=== PATIENT | male | born 1950 | race Caucasian/White ===

== ENCOUNTER 2023-08-29 19:07 | Emergency (ER) | payer MEDICARE, OTHER ==
[~2023-08-29] VITALS: Ht 177.8 cm; Wt 110.0 kg
[2023-08-29] MEDS ORDERED: OMEPRAZOLE20 MG PO (20:26)
[2023-08-29] MEDS ORDERED: METOPROLOL SUC100 MG PO (20:26)
[2023-08-29] MEDS ORDERED: LOVASTATIN20 MG PO (20:26)
[2023-08-29] MEDS ORDERED: LISINOPRIL-HCT1 EAC1 PO (20:26)
[2023-08-29 20:54] LABS: BASOPHILS 0.5 % (0-2); EOSINOPHILS 2.9 % (0-6); HEMATOCRIT 44.3 % (35.0-50.0); HEMOGLOBIN 15.3 g/dL (12.0-18.0); LYMPHOCYTES 21.4 % (24-44); MCH 33.3 (27-36); MCHC 34.6 g/dl (30-36); MONOCYTES 9.8 % (0-12); NEUTROPHILS 65.4 % (39-80); PLATELET COUNT 176 K/uL (140-440); RBC 4.61 M/ul (4.3-5.7); RDW 13.5 (10.5-15.0)
[2023-08-29 21:18] LABS: ALBUMIN 3.7 g/dL (3.4-5.0); ALBUMIN/GLOBULIN RATIO 1.23 (1.1-2.4); BILIRUBIN, TOTAL 0.5 ng/dL (0.2-1.0); BUN/CREATININE RATIO 17.39 (6.0-28.6); CALCIUM 8.6 mg/dL (8.5-10.1); CREATININE, SERUM 0.92 mg/dL (0.70-1.30); MAGNESIUM 2.2 mg/dL (1.8-2.4); PROTEIN, TOTAL 6.7 g/dL (6.4-8.2)
[2023-08-30 00:03] VITALS: BP 135/76
--- NOTE | 2023-08-31 18:49 | EKG ---
[facility] [address] [facility] [place], [place] [address] Signed Normal sinus rhythm Normal ECG Confirmed by Jose A Pineda M.D. ([id number]) on 08/31/2023 6:49:05 PM Electronically Signed By: JOSE A PINEDA 08/31/23 1849 PATIENT NAME: MIGUEL ANGEL BRO Electrocardiogram DATE OF : 54 PHYSICIAN: JOSE A PINEDA REPORT #: [id number] REPORT IS CONFIDENTIAL AND NOT TO BE RELEASED WITHOUT AUTHORIZATION
== END 2023-08-30 00:04 | disposition home or self-care (01) ==
LOC: ED 19:07
PROVIDERS: Internal Medicine
DX: G45.9 Transient cerebral ischemic attack, unspecified (principal); E87.6 Hypokalemia; I10 Essential (primary) hypertension; K21.9 Gastro-esophageal reflux disease without esophagitis; E78.00 Pure hypercholesterolemia, unspecified; Z79.899 Other long term (current) drug therapy
CPT/HCPCS: 36415; 70450; 70496; 70498; 71045; 80053; 83735; 84484; 85025; 93005; 93010; 99284-25; A9270

== ENCOUNTER 2024-05-17 05:35 | Day surgery (SDC) | payer MEDICARE, OTHER ==
[2024-05-04 14:26] VITALS: BP 132/76
[~2024-05-17] VITALS: Ht 177.8 cm; Wt 109.1 kg
[~2024-05-17 05:35] MED LIST: BAYER BACK & B1 EACH PO; CENTRUM SILVER1 EAC9 PO; HYDROCHLOROTH12.5 MG PO; LACTATED RINGER'S 1,000 ML IV SCH; LISINOPRIL-HCT1 EAC1 PO; LOVASTATIN20 MG PO; MELOXICAM15 MG PO; METOPROLOL SUC100 MG PO; OMEPRAZOLE20 MG PO; ZESTRIL40 MG PO
[2024-05-17] MEDS ORDERED: GABAPENTIN 600 MG TAB ONE (05:49)
[2024-05-17 06:06] VITALS: BP 153/81
[2024-05-17 06:32] LABS: BASOPHILS 1.1 % (0-2); EOSINOPHILS 5.9 % (0-6); HEMATOCRIT 44.5 % (35.0-50.0); HEMOGLOBIN 15.6 g/dL (12.0-18.0); LYMPHOCYTES 21.8 % (24-44); MCH 33.8 (27-36); MCHC 35.1 g/dl (30-36); MCV 96.4 fl (81-99); MONOCYTES 10.8 % (0-12); NEUTROPHILS 60.4 % (39-80); PLATELET COUNT 171 K/uL (140-440); RBC 4.62 M/ul (4.3-5.7); RDW 13.4 (10.5-15.0)
[2024-05-17 06:46] LABS: ALBUMIN/GLOBULIN RATIO 1.38 (1.1-2.4); ANION GAP 13.7 (7-21); BILIRUBIN, TOTAL 0.8 ng/dL (0.2-1.0); BUN/CREATININE RATIO 23.23 (6.0-28.6); CALCIUM 9.1 mg/dL (8.5-10.1); CREATININE, SERUM 0.99 mg/dL (0.70-1.30); POTASSIUM 3.7 mmol/L (3.5-5.1); PROTEIN, TOTAL 6.9 g/dL (6.4-8.2)
[2024-05-17] MEDS ORDERED: PANTOPRAZOLE SODIUM 40 MG TABEC PO SCH (07:00)
[2024-05-17] MEDS ORDERED: OXYCODONE HCL 5 MG TAB PO SCH (07:00)
[2024-05-17] MEDS ORDERED: KETOROLAC TROMETHAMINE 30 MG/ML VIAL IV PRN (07:00)
[2024-05-17] MEDS ORDERED: TRANEXAMIC ACID 2,000 MG in SODIUM CHLORIDE 0.9% 100 ML IV SCH (07:00)
[2024-05-17] MEDS ORDERED: OXYCODONE HCL 5 MG TAB PO PRN (07:00)
[2024-05-17] MEDS ORDERED: IBLOOD GLUCOSE TEST STRIP 1 EA TEST VI PRN ×2 (07:00→09:00)
[2024-05-17] MEDS ORDERED: GABAPENTIN 600 MG TAB PO SCH (07:00)
[2024-05-17] MEDS ORDERED: ondansetron HCL 4 MG TAB PO SCH (07:00)
[2024-05-17] MEDS ORDERED: LIDOCAINE HCL 1% 5 ML SDV INJ ONE (07:00)
[2024-05-17] MEDS ORDERED: CEFAZOLIN SODIUM 2 GM/20 ML SYR IV SCH ×2 (07:00→15:00)
[2024-05-17] MEDS ORDERED: INTRA-ARTICULAR ANALGESIC INJECTION XX SCH (07:00)
[2024-05-17] MEDS ORDERED: propofoL 200 MG/20 ML VIAL ONE ×2 (07:39→08:02)
[2024-05-17] MEDS ORDERED: BUPIVACAINE 0.75% IN DEXTROSE 2 ML AMP ONE (07:40)
[2024-05-17] MEDS ORDERED: LIDOCAINE HCL 2% 5 ML SDV ONE (07:40)
[2024-05-17] MEDS ORDERED: LACTATED RINGER'S 1,000 ML IV ONE (08:20)
[2024-05-17] MEDS ORDERED: ACETAMINOPHEN 1,000 MG/100 ML VIAL ONE (08:59)
[2024-05-17] MEDS ORDERED: fentaNYL citrate 50 MCG/ML SDV IV PRN (09:00)
[2024-05-17] MEDS ORDERED: HYDROmorphone HCL 1 MG/ML SYR IV PRN (09:00)
[2024-05-17] MEDS ORDERED: ondansetron HCL 4 MG/2 ML VIAL IV PRN (09:00)
[2024-05-17] MEDS ORDERED: NALOXONE HCL 0.4 MG SYR IV PRN (09:00)
[2024-05-17] MEDS ORDERED: KETOROLAC TROMETHAMINE 30 MG/ML VIAL ONE (09:25)
[2024-05-17] MEDS ORDERED: OXYCODONE HCL5 MG PO (09:41)
[2024-05-17] MEDS ORDERED: XARELTO10 MG PO (09:41)
[2024-05-17] MEDS ORDERED: CELECOXIB200 MG PO (09:41)
[2024-05-17] MEDS ORDERED: ACETAMINOPHEN500 MG PO (09:42)
[2024-05-17] MEDS ORDERED: CEFUROXIME500 MG PO (09:42)
[2024-05-17] MEDS ORDERED: GABAPENTIN300 MG PO (09:42)
[2024-05-17] MEDS ORDERED: SENNA LAX8.6 MG PO (09:42)
--- NOTE | 2024-05-17 09:56 | NUR ---
05/17/24 0956 Anum Alcaraz PATIENT ARRIVES IN PACU AWAKE AND ALERT. HE IS TALKING WITH SUPPLIER ENGINEER AND NURSING STAFF. HE DENIES PAIN. HE IS UNABLE TO MOVE HIS LEGS, BILATERALLY.
[2024-05-17] MEDS ORDERED: TRANEXAMIC ACID 2,000 MG in SODIUM CHLORIDE 0.9% 100 ML IV ONE (09:59)
[2024-05-17 10:25] VITALS: BP 125/65
--- NOTE | 2024-05-17 10:32 | NUR ---
1025-PT BACK TO ROOM FROM PACU ON RA. RECEIVED REPORT FROM CORNELIA PEREIRA. PT IS AWAKE. JERRICA PAIN AND NAUSEA. CRYO CUFF IN PLACE AND RUNNING. PROVIDED PT WITH WATER. DECLINES SNACKS AT THIS TIME. NO OTHER NEEDS AT THIS TIME. CALL LIGHT WITHIN REACH.
--- NOTE | 2024-05-17 11:11 | OR ---
[facility] [address] [place], [place] [address] Signed DATE OF OPERATION: 05/17/2024 SURGEON: Christal Roy MD PREOPERATIVE DIAGNOSIS: Severe degenerative joint disease, left hip. POSTOPERATIVE DIAGNOSIS: Severe degenerative joint disease, left hip. PROCEDURE PERFORMED: Left total hip arthroplasty with Bharath. INSECTICIDE MAKER: Alexa Agudelo PA-C. Alexa was present and critical for all portions of procedure. ANESTHESIA: Spinal. BLOOD LOSS: 175 mL. IMPLANTS: Yong Secur-Fit Advanced size 10 stem, 58 mm cup with two screws and -2.5 head. BRIEF HISTORY: Jordan is a 73-year-old gentleman with progressive worsening of osteoarthritis in his left hip. He had revision hip arthroplasty on the right and his right leg was about 1 inch short. We discussed the fact that that will continue to be the case as we could not shorten this side. He understood and wished to proceed. Risks, benefits, and alternatives were discussed and he elected to proceed. PROCEDURE IN DETAIL: Once consent was obtained, he was taken to the operating room. After adequate anesthesia, he was placed on his right lateral decubitus position. Axillary roll was placed. All downside pressure points were padded. The leg was then prepped and draped in a standard sterile fashion. The computer array for the Bharath system was then placed in the posterior three fingerbreadths of the iliac crest through separate stab incisions. Once this was accomplished, the hip was approached through standard anterior Electronically Signed By: CHRISTAL ROY MD 05/17/24 1111 PATIENT NAME: JORDAN BRO OPERATIVE REPORT DATE OF : 54 REPORT #: [id number] PHYSICIAN: CHRISTAL ROY MD PCP: REY SALAZAR REPORT IS CONFIDENTIAL AND NOT TO BE RELEASED WITHOUT AUTHORIZATION [facility] [address] [place], [place] [address] Signed lateral approach. This was carried through skin subcutaneous tissue and down to the IT band which was divided longitudinally. The vastus lateralis was then divided from the tip of the trochanter distally and subperiosteally elevated around to the level of the lesser trochanter. The gluteus medius and capsule were split as we went. This was then elevated off the anterior femoral neck. There was fairly thickened capsule that was released anteriorly and superiorly. The hip was quite tight and multiple attempts at closed dislocation was undertaken without success. We then marked the leg lengths with the computer and established the position. The femoral neck cut x2 was made and the napkin ring of bone was removed. We attempted to remove the head and he still had difficulty with it, so I went ahead and split the head in half and removed it quite easily. The periacetabular soft tissue was then removed and the pulvinar was removed. The fine anatomic points of the acetabulum were then registered with the computer. Acetabulum was then reamed to the preset depth. Once this was accomplished, there was a large cyst in the superior aspect of the acetabulum. This was curetted and packed with bone graft from the femoral head. This was then reverse reamed into position. The cup was then impacted into the acetabulum until it was well-seated. Then two screws were placed in the posterior superior quadrant. The acetabular liner was then impacted. The cup was quite stable. Attention was then turned to the proximal femur which was opened using the [employer] cutter followed by the Charnley awl. The Charnley awl was then used to find the canal. The lateralizing reamer was used to open up the trochanter and the femur was then broached up to a 10 which was found to be well fitting. A standard offset neck and a -2.5 head was then placed on it and it was reduced. The leg lengths felt good, although was still long from the opposite side. The hip was stable with negative Shuck. The range of motion was 100 degrees of flexion with 30 of internal-external rotation and no impingement. The hip was dislocated and the trials were removed. The final stem was impacted to the same level as the broach. The -2.5 head was impacted onto the trunnion after cleaning the taper. The hip was again reduced taken through range of motion as noted above and found to be stable. The wound was copiously irrigated with one bottle of Surgiphor followed by normal saline. The periarticular soft tissues were injected with 100 mL ropivacaine and Toradol mixture. The capsule was closed using #2 FiberWire. The vastus and IT band layers were closed independently using #2 Stratafix, the subcutaneous tissue with 0 Stratafix and the skin with 3-0 Stratafix. The wound was sealed with LiquiBand and Steri-Strips and dressed with Acticoat-7 dressing. He was awakened, taken to the recovery room in satisfactory condition. All sponge, needle, and instrument counts were correct. Christal Roy MD Electronically Signed By: CHRISTAL ROY MD 05/17/24 1111 PATIENT NAME: JORDAN BRO OPERATIVE REPORT DATE OF : 54 REPORT #: [id number] PHYSICIAN: CHRISTAL ROY MD PCP: REY SALAZAR REPORT IS CONFIDENTIAL AND NOT TO BE RELEASED WITHOUT AUTHORIZATION [facility] [address] [place], [place] [address] [address] Signed /MODL /[id number] Copies: ~ Electronically Signed By: CHRISTAL ROY MD 05/17/24 1111 PATIENT NAME: JORDAN BRO OPERATIVE REPORT DATE OF : 54 REPORT #: [id number] PHYSICIAN: CHRISTAL ROY MD PCP: REY SALAZAR REPORT IS CONFIDENTIAL AND NOT TO BE RELEASED WITHOUT AUTHORIZATION
[2024-05-17 11:26] VITALS: BP 121/47
[2024-05-17 12:23] VITALS: BP 113/55
[2024-05-17 13:30] VITALS: BP 104/50
--- NOTE | 2024-05-17 13:38 | NUR ---
LE 1126-PT LAYING IN BED. RESP EVEN AND UNLABORED. DENIES PAIN AND NAUSEA. CRYO CUFF IN PLACE AND RUNNING. NO OTHER NEEDS AT THIS TIME. CALL LIGHT WITHIN REACH. LE 1132-LUNCH ORDERED. LE 1200-LUNCH ARRIVED.
--- NOTE | 2024-05-17 13:39 | NUR ---
1224-PT LAYING IN BED. RESP EVEN AND UNLABORED. DENIES PAIN AND NAUSEA. CRYO CUFF IN PLACE AND RUNNING. FAMILY IN ROOM. NO OHTER NEEDS AT THIS TIME. CALL LIGHT WITHIN REACH.
--- NOTE | 2024-05-17 13:40 | NUR ---
LE 1330-PT LAYING IN BED. FAMILY IN ROOM. RESP EVEN AND UNLABORED. DENIES PAIN AND NAUSEA. CRYO CUFF IN PLACE AND RUNNING. NO OTHER NEEDS AT THIS TIME. CALL LIGHT WITHIN REACH. LE 1334-PT IN ROOM WITH PATIENT.
[2024-05-17 14:35] VITALS: BP 125/47
--- NOTE | 2024-05-17 14:42 | NUR ---
LE 1435-PT LAYING IN BED. RESP EVEN AND UNLABORED. DENIES PAIN AND NAUSEA. CRYO CUFF IN PLACEA AND RUNNING. FAMILY IN ROOM. PT IS DRINKING WATER. UNABLE TO VOID AT THIS TIME. NO OTHER NEEDS AT THIS TIME. CALL LIGHT WITHIN REACH.
--- NOTE | 2024-05-17 14:42 | NUR ---
SERGIO 1407-PATIENT BACK TO ROOM FROM PT.
[2024-05-17] MEDS ORDERED: GABAPENTIN 300 MG CAP PO SCH (15:00)
[2024-05-17] MEDS ORDERED: ACETAMINOPHEN 500 MG TAB PO SCH (15:00)
--- NOTE | 2024-05-17 16:20 | NUR ---
LE 1500-PT HAS BEEN UNABLE TO VOID. BLADDER SCAN COMPLETE, 847ML IN BLADDER. LE 1505-PT AMBUALTES WITH WALKER TO BATHROOM. PT UNABLE TO VOID. LE 1507-PT WALKING WITH WALKER AROUND DAY SURGERY. GAIT STEADY AND TOLERATED WELL. LE 1515-PT VOIDS 300ML OF YELLOW URINE. LE 1520-PT GETTING DRESSED. IN ROOM HELPING PT.
--- NOTE | 2024-05-17 16:24 | NUR ---
LE 1540-WENT OVER DISCHARGE INSTRUCTIONS WITH PT AND . WENT OVER ALL POSTOP MEDICATIONS. ALL QUESTIONS ANSWERED. PT DENIES PAIN. LE 1545-PT AMBULATES WITH WALKER TO WHEELCHAIR. RIDE PROVIDED TO FRONT OF HOSPITAL WHERE WAS WAITING WITH THE CAR.
[2024-05-17] MEDS ORDERED: SENNOSIDES 1 TAB PO SCH (21:00)
[2024-05-18] MEDS ORDERED: Rivaroxaban 10 MG TAB PO SCH (08:00)
[2024-05-18] MEDS ORDERED: CELECOXIB 200 MG CAP PO SCH (08:00)
== END 2024-05-17 15:45 | disposition home or self-care (01) ==
LOC: DS 05:35
PROVIDERS: Nurse Anesthetist, Certified Registered; ATTEND Specialist
PROC: 0SRB0JZ Replacement of Left Hip Joint with Synthetic Substitute, Open Approach (ICD-10-PCS; principal; 2024-05-17 08:00)
DX: M16.12 Unilateral primary osteoarthritis, left hip (principal); I10 Essential (primary) hypertension; K21.9 Gastro-esophageal reflux disease without esophagitis; E78.00 Pure hypercholesterolemia, unspecified; Z79.899 Other long term (current) drug therapy
CPT/HCPCS: 01214; 36415; 72170; 80053; 85025; 97161; A9270; C1713; C1776; J0131; J0690; J1885; J2704; J7121

== ENCOUNTER 2024-05-26 17:47 | Inpatient (IN) | payer MEDICARE, OTHER ==
[~2024-05-26] VITALS: Ht 177.8 cm; Wt 108.0 kg
[~2024-05-26 17:47] MED LIST changes: +ACETAMINOPHEN500 MG PO; +CEFUROXIME500 MG PO; +CELECOXIB200 MG PO; +GABAPENTIN300 MG PO; -LACTATED RINGER'S 1,000 ML IV SCH; +OXYCODONE HCL5 MG PO; +SENNA LAX8.6 MG PO; +XARELTO10 MG PO
[2024-05-26] MEDS ORDERED: LACTATED RINGER'S 1,000 ML IV SCH (20:30)
[2024-05-26] MEDS ORDERED: MORPHINE SULFATE 4 MG/ML VIAL IV PRN (20:30)
[2024-05-26] MEDS ORDERED: ondansetron HCL 4 MG/2 ML VIAL IV PRN (20:30)
[2024-05-26] MEDS ORDERED: ACETAMINOPHEN 325 MG TAB PO PRN (20:30)
[2024-05-26 20:41] LABS: BASOPHILS 0.4 % (0-2); EOSINOPHILS 0.4 % (0-6); HEMATOCRIT 37.9 % (35.0-50.0); HEMOGLOBIN 13.6 g/dL (12.0-18.0); LYMPHOCYTES 6.6 % (24-44); MCHC 35.9 g/dl (30-36); MCV 94.7 fl (81-99); MONOCYTES 5.1 % (0-12); NEUTROPHILS 87.5 % (39-80); PLATELET COUNT 256 K/uL (140-440); RBC 4.01 M/ul (4.3-5.7); RDW 13.4 (10.5-15.0)
[2024-05-26 21:03] LABS: ALBUMIN 3.6 g/dL (3.4-5.0); ALBUMIN/GLOBULIN RATIO 1.16 (1.1-2.4); ANION GAP 14.6 (7-21); BILIRUBIN, TOTAL 0.8 ng/dL (0.2-1.0); BUN/CREATININE RATIO 26.37 (6.0-28.6); CALCIUM 8.7 mg/dL (8.5-10.1); CREATININE, SERUM 0.91 mg/dL (0.70-1.30); POTASSIUM 3.6 mmol/L (3.5-5.1); PROTEIN, TOTAL 6.7 g/dL (6.4-8.2)
[2024-05-26 21:19] LABS: ABO O; ANTIBODY SCREEN NEGATIVE; IS CROSSMATCH COMPATIBLE; RH NEGATIVE
[2024-05-26 21:20] LABS: ABO O; RH NEGATIVE
[2024-05-26 21:43] VITALS: BP 117/73
--- NOTE | 2024-05-26 21:45 | NUR ---
pt ARRIVED TO THE FLOOR VIA STRETCHER. pt TRANSFERED TO THE BED VIA AIR MATTRESS. pt NPO AT MIDNIGHT. WATER AND SANDWHICH BOX PROVIDED. LEFT HIP DRESSING CDI. pt DENIES ANY OTHER NEEDS AT THIS TIME. ASSESSMENT AND VITAL SIGNS DONE. CALL LIGHT WITHIN REACH.
[2024-05-26 22:40] VITALS: BP 117/73
--- NOTE | 2024-05-26 23:46 | NUR ---
pt PLACED ON TELE PER ORDER. pt DENIES ANY OTHER NEEDS AT THIS TIME. CALL LIGHT WITHIN REACH.
[2024-05-27] VITALS (11 sets, daily range): BP systolic 121–141; BP diastolic 56–73
--- NOTE | 2024-05-27 01:17 | NUR ---
IN RM TO DO pt VITAL SIGNS AND TAKE pt WATER AWAY DUE TO pt BEING NPO. CPOX PLACED ON pt. pt DENIES ANY NEEDS AT THIS TIME. CALL LIGHT WITHIN REACH.
--- NOTE | 2024-05-27 02:52 | NUR ---
pt RESTING IN THE BED WITH EYES CLOSED. RR EVEN AND UNLABORED. CALL LIGHT WITHIN REACH.
--- NOTE | 2024-05-27 06:48 | NUR ---
pt RESTING IN THE BED. ASSESSMENT AND VITAL SIGNS DONE. URINAL EMPTIED. HEALS FLOATED. CPOX ON. TELE #1 ON. pt DENIES ANY NEEDS AT THIS TIME. CALL LIGHT WITHIN REACH.
--- NOTE | 2024-05-27 07:08 | NUR ---
REPORT RECEIVED FROM AD OPERATIONS INTERN RN CARMELITA. PATIENT IS LYING IN BED WITH EYES OPEN AND RESPIRATIONS ARE EVEN AND UNLABORED. PATIENT URINAL DUMPED. PATIENT STATED NO FURTHER NEEDS AT THIS TIME. CALL LIGHT AND PERSONAL BELONGINGS ARE WITHIN REACH.
--- NOTE | 2024-05-27 08:03 | NUR ---
UR CLINICAL REVIEW: ALEKSANDER BILLS- MEETS INPT CRITERIA WILL DISCUSS WITH PHYSICIAN MEDICARE OBS- 05/27/24 @ 0132 ORDER MATCHES REG NO AUTH REQUIRED PER MEDICARE RULES DC PLAN PENDING SURGERY 05/28/24
--- NOTE | 2024-05-27 08:11 | NUR ---
Patient was awake upon entering the room. RN was in room already informing the patient they were no longer NPO. Ice water was given and breakfast ordered. No other cares were requested.
--- NOTE | 2024-05-27 08:47 | NUR ---
PATIENT IS LYING IN BED WITH A VISITOR AT THE BEDSIDE. PATIENT IS REQUESTING TYLENOL FOR PAIN AND ACHING. CPOX AT THE BEDSIDE. URINAL DUMPED. PATIETN STATED NO FURTHER NEEDS AT THIS TIME. CALL LIGHT AND PERSONAL BELONGINGS ARE WITHIN REACH.
--- NOTE | 2024-05-27 09:18 | NUR ---
LEFT VM FOR DR. ROSE TO SEE IF WE CAN RESTART MEDS (IV FLUIDS, PAIN MEDS AND ZOFRAN) ED BRIDGE ORDERS DISCONTINUED WHILE INPATIENT. AWAITING RETURN CALL, PRIMARY RN UPDATED WE ARE AWAITING RETURN CALL.
--- NOTE | 2024-05-27 09:54 | NUR ---
PATIENT IS LYING IN BED WITH AN ACHEY PAIN. PATIENT EDUCATED ON MECHANIC CHIEF CALLING AND WAITING FOR ORDERS. PATIENT EXPRESSED UNDERSTANDING. PATIENT STATED NO FURTHER NEEDS AT THIS TIME. CALL LIGHT AND PERSONAL BELONGINGS ARE WITHIN REACH.
--- NOTE | 2024-05-27 10:54 | NUR ---
PT LYING IN BED AWAKE WITH VISITOR AT THE BEDSIDE. PT STATES PAIN IS 6/10 AND REQUESTS PAIN MEDICATION IF AVAILABLE. NO PAIN MEDICATION ORDERED, PRIMARY NURSE UPDATED. PT UPDATED. PT STATES NO FURTHER NEEDS AT THIS TIME, CALL LIGHT WTIHIN REACH.
--- NOTE | 2024-05-27 11:02 | NUR ---
ICE PACK PROVIDED PER PT REQUEST. NO FURTHER NEEDS STATED, CALL LIGHT WITHIN REACH.
--- NOTE | 2024-05-27 11:04 | NUR ---
ALERT AND ORIENTED IN BED. SPOUSE IN ROOM. PATIENT LIVES IN SINGLE LEVEL HOME WITH HIS . RECENTLY HAD HIS HIP ARTHROPLASTY DONE APPROXIMATELY 10 DAYS AGO. FELL AT HOME. HAS HAD HOME HEALTH COMING IN TO WORK WITH HIM, CAN NOT REMEMBER THE NAME OF THE COMPANY WHO IS CARING FOR HIM. STATES HE PLANS TO BE NON-WEIGHT BEARING POST OP HE WAS NWB WITH A PREVIOUS HIP SURGERY. HAS A WALKER, SPOUSE CONCERNED OF NEED FOR WHEELCHAIR IF HE IS NON WEIGHT BEARING. DISCUSSED EDUCATION THAT WILL BE PROVIDED BY PT. ALSO DISCUSSED [employer] VS [employer] FOR WHEELCHAIR IF NEEDED. [employer] INFORMATION PROVIDED. BOTH PATIENT AND SPOUSE STATE THEY WILL WAIT UNTIL AFTER SURGERY TO VERIFY WEIGHT BEARING STATUS PRIOR TO DECIDING ABOUT A WHEELCHAIR. PATIENT DRIVES AT BASELINE BUT IS CURRENTLY NOT DRIVING DUE TO RECENT SURGERY. PATIENT AND SPOUSE BOTH DENY FINANCIAL ISSUES. NO OTHER CASE MANAGEMENT NEEDS AT THIS TIME. WILL RETURN TO SPEAK WITH THEM REGARDING WHEELCHAIR POST OPERATIVELY.
--- NOTE | 2024-05-27 11:58 | NUR ---
PATIENT IS LYING IN BED AND LOOKING ON THEIR PHONE. FULL ASSESSMENT COMPLETE AND DOCUMENTED IN THE CHART. PATIENT IS ON BED REST AT THIS TIME. PATIENT IS ON ROOM AIR WITH THE CPOX AT BEDSIDE. LUNG SOUNDS ARE CLEAR IN ALL LUNG JAUREGUI BILATERALLY. CARDIAC WITH NORMAL S1 AND S2 ON AUSCULTATION. RADIAL PULSES ARE STRONG BILATERALLY. SENSATION INTACT WITH NO COMPLAINTS OF NUMBNESS AND TINGLING. LLE IS COOL TO THE TOUCH. PATIENT IS ON TELEMETRY NUMBER 1 AND IS IN NORMAL SINUS RHYTHM. PATIENT IS ON A REGULAR DIET AND IS NPO AT MIDNIGHT. LAST BM WAS 05/26/24. BOWEL TONES ARE ACTIVE IN ALL FOUR QUADRANTS. IV SITE IS SALINE LOCKED AND FLUSHED WITH 10 ML NORMAL SALINE. IV DRESSING IS CLEAN, DRY, AND INTACT. PATIENT WITH BRUISING ON THE LEFT HIP AND RIGHT ARM NOTED. DRESSING ON THE LEFT HIP IS CLEAN, DRY, AND INTACT. DRESSING ON THE LEFT UPPER HIP CLEAN. DRESSING REFASTENED WITH TAPE AROUND THE EDGES. PATIENT RATED PAIN 2/10 ON THE LEFT HIP THAT IS ACHEY. PATIENT WITH AN ICE PACK IN PLACE. PATIENT STATED NO FURTHER NEEDS AT THIS TIME. CALL LIGHT AND PERSONAL BELONGINGS ARE WITHIN REACH.
[2024-05-27] MEDS ORDERED: LISINOPRIL-HCT1 EAC1 PO (12:06)
--- NOTE | 2024-05-27 12:20 | NUR ---
ORTHOPEDICS INTELLIGENCE CONSULTANT NOTIFIED OF ORDERS DROPPING OFF. RN RECEIVED ORDERED AND TO PUT IN THE CHART. CALL ENDED.
--- NOTE | 2024-05-27 12:40 | NUR ---
PATIENT NOTIFIED OF RN RECEIVING ORDERS. PATIENT IS REQUESTING PAIN MEDICATION WHEN THE MEDICATION HAS BEEN VERIFIED BY PHARMACY. PATIENT WITH A VISITOR SITTING AT THE BEDSIDE. PATIENT STATED NO FURTHER NEEDS AT THIS TIME. CALL LIGHT AND PERSONAL BELONGINGS ARE WITHIN REACH.
[2024-05-27] MEDS ORDERED: ACETAMINOPHEN 500 MG TAB PO PRN ×2 (12:45→14:00)
[2024-05-27] MEDS ORDERED: LACTATED RINGER'S 1,000 ML IV SCH (12:45)
[2024-05-27] MEDS ORDERED: ACETAMINOPHEN 1,000 MG/100 ML VIAL IV PRN (12:45)
[2024-05-27] MEDS ORDERED: NEURONTIN300 MG PO (12:50)
--- NOTE | 2024-05-27 12:50 | NUR ---
MED REC COMPLETE
[2024-05-27] MEDS ORDERED: HYDROmorphone HCL 1 MG/ML SYR IV PRN (13:00)
[2024-05-27] MEDS ORDERED: ondansetron HCL 4 MG/2 ML VIAL IV PRN (13:00)
[2024-05-27] MEDS ORDERED: GABAPENTIN 300 MG CAP PO ONE ×2 (13:00→18:00)
--- NOTE | 2024-05-27 14:00 | NUR ---
1300 GABAPENTIN REFUSED BY THE PATIENT. PRN TYLENOL ADMINISTERED AT THIS TIME FOR PAIN RATED 3/10 IN THE LEFT HIP. LARGE BRUISE NOTED. LEFT HIP DRESSINGS ARE CLEAN, DRY, AND INTACT. ICE PACK IN PLACE WITH A BARRIER BETWEEN THE PATIENT SKIN AND THE ICE PACK. IV SITE FLUSHED WITH 10 ML NORMAL SALINE AND HAS LR INFUSING AT 100 ML/HR. IV DRESSING IS CLEAN, DRY, AND INTACT. PATIENT STATED NO FURTHER NEEDS AT THIS TIME. PATIENT WITH VISITOR SITTING IN THE CHAIR AT BEDSIDE. CPOX AT BEDSIDE. CALL LIGHT AND PERSONAL BELONGINGS ARE WITHIN REACH.
--- NOTE | 2024-05-27 14:53 | NUR ---
VISITED DURING SPIRITUAL CARE ROUNDS. PT SUPPORTED BY IN ROOM; BOTH EXPRESSED SITUATIONALLY APPROPRIATE EMOTIONS, DENIED IMMEDIATE NEEDS. SPLITTING MACHINE OPERATOR HELPER PROVIDED SUPPORTIVE PRESENCE, HOSPITALITY, ANTICIPATORY GUIDANCE, PRAYER. PT AND EXPRESSED GRATITUDE.
--- NOTE | 2024-05-27 15:05 | NUR ---
Patient was resting in bed with their in the room. Temp was 100.0 but they reported feeling good. Fresh ice water was given. No other cares were requested.
--- NOTE | 2024-05-27 15:11 | NUR ---
PATIENT IS LYING IN BED WITH EYES CLOSED AND RESPIRATIONS ARE EVEN AND UNLABORED. CPOX AT THE BEDSIDE. PATIENT VISITOR IS SITTING IN THE CHAIR AND LOOKING ON THEIR PHONE. CALL LIGHT AND PERSONAL BELONGINGS ARE WITHIN REACH.
--- NOTE | 2024-05-27 15:55 | NUR ---
Pt report received from RANDALL Jimenez. Pt is awake, resting supine in bed, family in room. Ice pack to left upper leg. CMS intact, pedal pulses intact. Pt denies any needs at this time. Call light and bedside table in reach.
--- NOTE | 2024-05-27 16:10 | NUR ---
LEFT LOWER EXTREMITY IS WARM TO THE TOUCH. PATIENT LEG TEMPERATURE ASSESS WITH RANDALL POST. CPOX IS AT THE BEDSIDE. PATIENT WITH SEVERAL VISITORS IN THE ROOM AT THIS TIME. PATIENT STATED NO FURTHER NEEDS, CALL LIGHT AND PERSONAL BELONGINGS ARE WITHIN REACH.
--- NOTE | 2024-05-27 19:32 | NUR ---
REPORT RECIEVED FROM DAY SHIFT RN. PATIENT RESTING IN BED WITH EYES CLOSED. RESPIRATIONS EVEN AND UNLABORED. CALL LIGHT IN REACH.
--- NOTE | 2024-05-27 20:50 | NUR ---
PATIENT RESTING IN BED. PATIENT REQUESTING PRN TYLENOL. PRN MEDICATION ADMINSITERED PER PATIENT REQUEST. ASSESSMENT COMPLETE. PATIENT DENIES PAIN AT THIS TIME. PATIENT EDUCATED TO ROOM AND CALL LIGHT. IV FLUSHES WNL. CALL LIGHT IN REACH.
--- NOTE | 2024-05-27 21:57 | NUR ---
CHAIR ALARM SOUNING. PATIENT UP WITH 2P SBA AND LORENE WALKER TO BED. PATIENT BHARTI WELL. PATIENT DENIES PAIN AT THIS TIME. PUREWICK PLACED AFTER AZRA CARE PROVIDED. IV FLUSHES WNL. PATIENT BED ALARM ON FOR SAFETY. CRYO CUFF FILLED WITH FRESH ICE WATER. ICE PLACED ON R SHOULDER. SPRITE PROVIDED PER PATIENT REQUEST. PATIENT HAS NO FURTHER NEEDS AT THIS TIME. CALL LIGHT IN REACH. BED ALARM ON FOR SAFETY.
--- NOTE | 2024-05-27 22:46 | NUR ---
PATIENT RESTING IN BED ON BACK WITH EYES CLOSED. REPSIRATIONS EVEN AND UNLABORED. CALL LIGHT IN REACH.
--- NOTE | 2024-05-27 23:57 | NUR ---
PATIENT RESTING IN BED. PATIENT TOOK ONE LAST SIP OF WATER. PATIENT NOW NPO AT THIS TIME. NO FURTHER NEEDS. CALL LIGHT IN REACH.
[2024-05-28] VITALS (12 sets, daily range): BP systolic 83–169; BP diastolic 47–85
[2024-05-28] MEDS ORDERED: ACETAMINOPHEN 1,000 MG/100 ML VIAL IV PRN
--- NOTE | 2024-05-28 02:47 | NUR ---
PATIENT RESING IN BED WITH EYES CLOSED. RESPIRATIONS EVEN AND UNLABORED. CALL LIGHT IN REACH.
[2024-05-28] MEDS ORDERED: TRANEXAMIC ACID 2,000 MG in SODIUM CHLORIDE 0.9% 100 ML IV ONE ×2 (03:00→12:41)
--- NOTE | 2024-05-28 03:53 | NUR ---
THIS RN CALLED MD ROSE (LITA MOFFETT ANSWERED) REGARDING TRANEXAMIC ACID ORDER. LITA STATED TO GIVE BOTH THE 0300 AND 0700 DOSE. NO NEW ORDERS.
--- NOTE | 2024-05-28 04:37 | NUR ---
PATIENT RESTING IN BED. PRE-PROCEDURE WIPEDOWN COMPLETE. NEW SHEET AND GOWN PLACED. LR WITH STRIGHT TUBING HUNG ON BED. SCHEDULED MEDICATION ADMINSITERED. VS AND I&Os OBTAINED AND RECORDED.
--- NOTE | 2024-05-28 04:49 | NUR ---
PATIENT REPORTS 5/10 LLE PAIN. PRN PAIN MEDICATION ADMINISTERED. FRESH ICE PACK PROVIDED. BLE PULSES PRESENT. BLE WARM TO TOUCH. PATIENT DENIES FURTHER NEEDS AT THIS TIME. CALL LIGHT IN REACH.
--- NOTE | 2024-05-28 06:20 | NUR ---
PATIENT OFF FLOOR WITH STUDIO OPERATIONS MANAGER.
[2024-05-28] MEDS ORDERED: TRANEXAMIC ACID IN NACL,ISO-OS 200 ML IV ONE (06:24)
--- NOTE | 2024-05-28 06:26 | NUR ---
PT HERE, ESCORTED HER TO THE DAYSURGERY
[2024-05-28] MEDS ORDERED: propofoL 200 MG/20 ML VIAL ONE ×2 (06:43→08:48)
[2024-05-28] MEDS ORDERED: MIDAZOLAM HCL 2 MG/2 ML VIAL ONE (06:44)
[2024-05-28] MEDS ORDERED: BUPIVACAINE 0.75% IN DEXTROSE 2 ML AMP ONE (06:44)
[2024-05-28] MEDS ORDERED: fentaNYL citrate 100 MCG/2 ML VIAL ONE (06:44)
[2024-05-28] MEDS ORDERED: LIDOCAINE HCL 2% 5 ML SDV ONE (06:44)
[2024-05-28] MEDS ORDERED: NALOXONE HCL 0.4 MG SYR IV PRN (07:00)
[2024-05-28] MEDS ORDERED: CEFAZOLIN SODIUM 2 GM/20 ML SYR IV SCH ×2 (07:00→15:00)
[2024-05-28] MEDS ORDERED: TRANEXAMIC ACID 2,000 MG in SODIUM CHLORIDE 0.9% 100 ML IV SCH (07:00)
[2024-05-28] MEDS ORDERED: ondansetron HCL 4 MG/2 ML VIAL IV PRN (07:00)
[2024-05-28] MEDS ORDERED: INTRA-ARTICULAR ANALGESIC INJECTION XX SCH (07:00)
[2024-05-28] MEDS ORDERED: IBLOOD GLUCOSE TEST STRIP 1 EA TEST VI PRN (07:00)
[2024-05-28] MEDS ORDERED: fentaNYL citrate 50 MCG/ML SDV IV PRN (07:00)
--- NOTE | 2024-05-28 07:22 | NUR ---
Pt report received from RANDALL Mejia Pt is currently in surgery at this time.
[2024-05-28] MEDS ORDERED: SODIUM CHLORIDE 0.9% 20 ML IV ONE (07:27)
[2024-05-28] MEDS ORDERED: ePHEDrine sulfate 50 MG/ML AMP ONE (07:27)
--- NOTE | 2024-05-28 09:02 | NUR ---
Patient taken back by surgical team before shift change.
[2024-05-28] MEDS ORDERED: PHENYLEPHRINE HCL 10 MG/ML VIAL ONE (09:08)
[2024-05-28] MEDS ORDERED: ACETAMINOPHEN 1,000 MG/100 ML VIAL ONE (09:12)
[2024-05-28] MEDS ORDERED: KETOROLAC TROMETHAMINE 30 MG/ML VIAL ONE (09:15)
[2024-05-28] MEDS ORDERED: KETOROLAC TROMETHAMINE 30 MG/ML VIAL IV PRN (10:00)
[2024-05-28] MEDS ORDERED: OXYCODONE HCL 5 MG TAB PO PRN (10:00)
--- NOTE | 2024-05-28 10:30 | NUR ---
PT NOT AVAIALBLE FOR VISIT. PROVIDED PRAYER.
--- NOTE | 2024-05-28 10:33 | NUR ---
05/28/24 1033 Robles Borjas 0953: PT ARRIVED TO PACU VIA BED. PT AWAKE AND TALKING WITHOUT DIFFICULTY. PT ON RA. NO COMPLAINTS OF PAIN OR NAUSEA. SPINAL LEVEL L2 AT THIS TIME. 0958: X-RAY TECH AT BEDSIDE. 1010: PT REMAINS ON RA. DRESSING C/D/I. PT HAS NO COMPLAINTS OF PAIN AT THIS TIME 1015: FRESH WATER GIVEN. 1025: PT TAKEN DOWN TO ROOM VIA BED. PT HAS NO COMPLAINTS OF PAIN OR NAUSEA. SPINAL LEVEL L2 AT THIS TIME. REPORT GIVEN TO FRANCK PEREIRA.
--- NOTE | 2024-05-28 10:43 | NUR ---
Pt arrived back to room at about 1023 hours, transferred via bed by HYDROELECTRIC MACHINERY MECHANIC Aslhee. Pt is A&O x4, denies any pain at this time, no n/v, denies any needs at this time. BP is soft at 83/69 (72), will recheck. IVF on pump at 100ml/hr per emar. Pt has been drinking water in PACU without issue. Pt's is in room. Call light in reach, side rails up, personal belongings and bedside table in reach.
--- NOTE | 2024-05-28 11:35 | NUR ---
UR CLINICAL REVIEW: ALEKSANDER BILLS- MEETS INPT CRITERIA WILL DISCUSS WITH PHYSICIAN MEDICARE OBS- 05/27/24 @ 0132 ORDER MATCHES REG NO AUTH REQUIRED PER MEDICARE RULES DC TO HOME WITH WHEN STABLE 05/29/24
--- NOTE | 2024-05-28 13:09 | OR ---
[facility] [address], [place] [address] Signed DATE OF OPERATION: 05/28/2024 SURGEON: Christal Roy MD PREOPERATIVE DIAGNOSIS: Left periprosthetic femur fracture. POSTOPERATIVE DIAGNOSIS: Left periprosthetic femur fracture. PROCEDURE PERFORMED: Open reduction and internal fixation of proximal femur with revision of femoral component. RAIL CAR DRIVER: Alexa Agudelo PA-C. Alexa was present and critical for the entire procedure. ANESTHESIA: Spinal. BLOOD LOSS: 200 mL. IMPLANTS: Yong bahai modular 18 x 195 distal stem, a 22 cone body and +7.5 head, four Synthes cables. BRIEF HISTORY: Jordan is a 73-year-old gentleman, who underwent primary total hip about two weeks ago. He stumbled and caught his foot and twisted feeling a snap in his hip. He fell. Radiographs in the ER showed a proximal femur fracture with impaction of the stem. He was admitted by service and scheduled for surgery this morning. We had to get the components brought in. Risks, benefits, and alternatives were discussed with him at length. He understands and wished to proceed. PROCEDURE IN DETAIL: Once consent was obtained, he was taken to the operating room. After adequate anesthesia, he was placed in right lateral decubitus position with an axillary roll and downside pressure points padded. The hip was then prepped and draped in a standard sterile fashion. The previous incision, which was well healed, was marked out and Electronically Signed By: CHRISTAL ROY MD 05/28/24 1309 PATIENT NAME: JORDAN BRO OPERATIVE REPORT DATE OF : 54 REPORT #: [id number] PHYSICIAN: CHRISTAL ROY MD PCP: REY SALAZAR REPORT IS CONFIDENTIAL AND NOT TO BE RELEASED WITHOUT AUTHORIZATION [facility] [address], [place] [address] Signed extended 3 inches distally and 1 inch proximally. This was incised longitudinally, taken through the skin and subcutaneous tissue. Hematoma was encountered in the subcutaneous tissue and we removed that. The IT band was intact for the most part. This was then released and all suture was removed. The vastus lateralis was then opened up again removing the old suture as we went. This allowed evaluation of the proximal femur and hip. The fracture was easily recognizable. We were able to clear things out and dislocate the hip. We then removed the head followed by the femoral stem with no difficulty. The fracture line was then cleared of all soft tissue and clot. It was then crossclamped using a large bone clamp. Three wires were passed across the fracture, one at the bottom, one in the middle and one just above the lesser trochanter. These were then tensioned to . The cables and fracture reduction were then checked using x-ray. This was found to be adequate. Attention was then turned to reaming. We reamed the distal femur to a depth of 265 for a 195 stem. This was reamed up to 18. We left the 18 in position and took another x-ray, which showed good fit in the distal canal. Once this was completed, the reamer was removed. The 18 x 195 stem was impacted until it was well seated and stable in the distal femur. Once that was completed, we then trialed with a standard body and initially 0 then +5 head. The anteversion was felt to be a little bit too much and we decreased the anteversion, which eliminated any impingement posteriorly. +5 was felt to be just a little bit loose, so we trialed +7.5, which felt quite good. He has abnormal leg lengths secondary to quite a bit shortening on his right leg. The soft tissue tension, however, felt quite good. We then dislocated the hip and removed the cone body trial and obtained the final cone body. It should be noted that we did ream the cone body up to a 22. The final 22 cone body was then impacted onto the distal stem at the previously set anteversion which we had marked out on the femur. Once this was completed, the screw was tightened and torqued to 180. The +7.5 head was placed on the trunnion and impacted after cleaning the trunnion. The hip was reduced range of motion to 100 degrees of flexion and 20 of internal and 30 of external rotation with good stability and no impingement. A negative Shuck test. The wound was copiously irrigated with 2 L of normal saline and 1 L of Surgiphor. Periarticular soft tissues were injected with 100 mL of ropivacaine and Toradol mixture. The capsule was then closed using #2 FiberWire. The vastus and IT band layers were closed independently using #2 Stratafix. We did put some Dominique on the bare muscle at the vastus layer. The subcutaneous tissue was closed with 0 Stratafix, the skin with monica. Wound was dressed with a VICTOR MANUEL wound VAC dressing. The patient was awakened, taken to the recovery room in satisfactory condition. All sponge, needle, and instrument counts were correct. Christal Roy MD Electronically Signed By: CHRISTAL ROY MD 05/28/24 1309 PATIENT NAME: JORDAN BRO OPERATIVE REPORT DATE OF : 54 REPORT #: [id number] PHYSICIAN: CHRISTAL ROY MD PCP: REY SALAZAR REPORT IS CONFIDENTIAL AND NOT TO BE RELEASED WITHOUT AUTHORIZATION [address] [place] [address] Signed /[facility] /[id number] Copies: ~ Electronically Signed By: CHRISTAL ROY MD 05/28/24 1309 PATIENT NAME: JORDAN BRO OPERATIVE REPORT DATE OF : 54 REPORT #: [id number] PHYSICIAN: CHRISTAL ROY MD PCP: REY SALAZAR REPORT IS CONFIDENTIAL AND NOT TO BE RELEASED WITHOUT AUTHORIZATION
--- NOTE | 2024-05-28 13:25 | NUR ---
Pt's brought in their home cryo cuff that he was given after his last surgery. This was filled and applied to the pt's operated extremity, with a towel placed between the cryo cuff and the pt's skin. Noted the dressing to pt's lateral thigh was with 75% shadowing and that the milady dressing tubing was kinked and underneath the pt (physical therapy had been working with the pt just prior to this). Unkinked the tubing, noted the green light flashing on the milady alarm, and updated Dr. Roy on my findings and sought clarification that as long as the green light is flashing, the dressing is working appropriately. (Dr. Roy was in the physician's desk area). Pt is not currently having any pain, TXA dose is complete, LR being administered via pump per emar. Pt has tolerated eating his lunch and is without complaints at this time. Side rails up, call light and bedside table in reach. at bedside. Advised Jina Maldonado that one more set of hourly VS needs to be obtained at 1330 hours.
--- NOTE | 2024-05-28 13:45 | NUR ---
Spoke with Jordan and his . Per , pt will dc on Friday. They deny needs but mention pt has HH from [facility]. Called and updated [facility] pt is here and I faxed the surgery report to them. They deny need for new orders for HH as they have placed pt on hold. Will resume HH next week. I texted Dr. Roy and updated. Pedro will need new orders if there is a change in wt bearing status or length of need. Pt is OBS, asked if he would like this pt made an IP in my text.
--- NOTE | 2024-05-28 14:19 | NUR ---
Patient was resting in bed. RN applied cryo cuff to left hip. Ice water was asked for and given.
[2024-05-28] MEDS ORDERED: GABAPENTIN 300 MG CAP PO SCH (15:00)
--- NOTE | 2024-05-28 16:15 | NUR ---
PT BED NOT WORKING SO PT UP TO THE BEDSIDE, WITH TWO STAFF, FRONT WHEEL WALKER AND TOE TOUCH WITH LEFT FOOT. THEN NEW BED BROUGHT IN AND PT BACK TO BED. PT TOLERATED THIS PROCESS WELL. POLR PACK INPLACE, SCD'S SPO2 MONITOR. VICTOR MANUEL DRESSING CONTROLS FLASHING GREEN AND LINE IS NOT BENT.
--- NOTE | 2024-05-28 18:33 | NUR ---
PT HAS NO C/O'S AT THIS TIME. WILL WANT PAIN MEDICATION WHEN HE IS GOING TO SLEEP FOR THE NIGHT. PT STATES "I KNOW MY LEG IS THERE" PAIN 10/11.
--- NOTE | 2024-05-28 19:22 | NUR ---
Pt resting in bed. Denies needs at this time. Call light within reach.
--- NOTE | 2024-05-28 19:45 | NUR ---
PT RESTING COMFORTABLY IN BED. VSS EXCEPT ELEVATED TEMP (100.6). USES CALL LIGHT APPROPRIATELY. REPORTS LEFT HIP/THIGH ACHE-MEDICATED W/ PRN OXYCODONE 5MG. CRYO CUFF IN PLACE TO LEFT THIGH. 2+ EDEMA TO LEFT THIGH. LSC. CPOX IN PLACE. HRR. TEDS IN PLACE TO BLE. BTA, HYPO. REPORTS LBM 05/26-GIVEN SCHEDULED MOM. DEL VAL[place] IN PLACE-CLEAR YELLOW URINE NOTED. RFA IV W/ LR INFUSING. LEFT HIP DRSGS X 2-UPPER DRSG W/ OLD DRIED DRNG. LOWER DRSG W/ VICTOR MANUEL WOUND VAC IN PLACE, DRSG W/ MOD AMT BLOODY DRNG. PT INSTRUCTED TO USE IS OR DEEP BREATHE X 10 TO REDUCE FEVER. CALL LIGHT WITHIN REACH.
--- NOTE | 2024-05-28 19:57 | NUR ---
EMERGENCY ROOM CLERK REFILLED CRYO CUFF WITH ICE. EMERGENCY ROOM CLERK PREFORMED CATHETER CARE. PT STATES NO NEEDS AT THIS TIME. CALL LIGHT WITHIN REACH.
[2024-05-28] MEDS ORDERED: MAGNESIUM HYDROXIDE 30 ML UDC PO SCH (21:00)
[2024-05-28] MEDS ORDERED: TAMSULOSIN HCL 0.4 MG CAP PO SCH (21:00)
--- NOTE | 2024-05-28 21:15 | NUR ---
TEMP 100.7 AT RECHECK. PT REPORTS HAVING USED IS X 10. WILL CONT TO MONITOR.
--- NOTE | 2024-05-28 22:39 | NUR ---
PT SLEEPING SOUNDLY. APPEARS COMFORTABLE. CALL LIGHT WITHIN REACH.
--- NOTE | 2024-05-28 23:33 | NUR ---
PT AWAKE, REPORTS CONTINUED PAIN TO LEFT THIGH. MEDICATED W/ PRN OXYCODONE PER EMAR. PT REPOSITIONED TO RIGHT SIDE W/ 3 ASSIST. CALL LIGHT WITHIN REACH.
[2024-05-29] VITALS (9 sets, daily range): BP systolic 122–154; BP diastolic 58–75
--- NOTE | 2024-05-29 00:30 | NUR ---
LITHOGRAPHIC PRESS OPERATOR HELPED PT REPOSITION IN BED ONTO HIS BACK.
--- NOTE | 2024-05-29 01:36 | NUR ---
PARK RANGER OBTAINED VITALS AND I&O. CATH BAG EMPTIED. PT STATES NO NEEDS AT THIS TIME. CALL LIGHT WITHIN REACH.
--- NOTE | 2024-05-29 01:44 | NUR ---
PT SLEEPING SOUNDLY. APPEARS COMFORTABLE. CALL LIGHT WITHIN REACH.
--- NOTE | 2024-05-29 03:38 | NUR ---
PT SLEEPING, APPEARS COMFORTABLE. BREATHING EVEN AND UNLABORED. CALL LIGHT WITHIN REACH.
[2024-05-29 05:29] LABS: BASOPHILS 0.4 % (0-2); EOSINOPHILS 0.9 % (0-6); HEMATOCRIT 31.2 % (35.0-50.0); HEMOGLOBIN 11.1 g/dL (12.0-18.0); LYMPHOCYTES 9.9 % (24-44); MCH 33.9 (27-36); MCHC 35.5 g/dl (30-36); MCV 95.5 fl (81-99); MONOCYTES 8.8 % (0-12); PLATELET COUNT 202 K/uL (140-440); RBC 3.26 M/ul (4.3-5.7); RDW 12.9 (10.5-15.0)
--- NOTE | 2024-05-29 05:33 | NUR ---
PT AWAKE, DENIES PAIN. CMS INTACT. LEFT HIP DRSG W/ DRIED DRNG. VICTOR MANUEL WOUNDVAC IN WORKING ORDER W/ GREEN FLASHING LIGHT. CRYO CUFF ICE REFRESHED, IN PLACE TO LEFT THIGH. ROLLED TOWELS UNDER ANKLES FOR HEEL PRESSURE RELIEF. ICE WATER REFRESHED. DEL VALLE EMPTIED OF 300CC CLEAR YELLOW URINE. NEW BAG LR HUNG.
[2024-05-29 05:38] LABS: ANION GAP 12.1 (7-21); BUN/CREATININE RATIO 19.1 (6.0-28.6); CREATININE, SERUM 0.89 mg/dL (0.70-1.30); POTASSIUM 4.1 mmol/L (3.5-5.1)
--- NOTE | 2024-05-29 07:23 | NUR ---
REPORT RECEIVED FROM RANDALL PEREZ. PT AWAKE IN BED, ADJUSTING HOB AND WIGGLING TOES. NO NEEDS AT THIS TIME, CALL LIGHT IN REACH.
--- NOTE | 2024-05-29 07:55 | NUR ---
INITIAL ASSESSMENT AND MEDICATION ADMINISTRATION PER OCT COMPLETE. PT HAS SCDs AND COMPRESSION STOCKINGS IN PLACE BLE. HEELS ELEVATED ON ROLLED TOWELS. VICTOR MANUEL WOUND VAC INTACT WITH SUCTION TO L THIGH INCISION, NO NEW DRAINAGE NOTED, DRESSING IS DRY AND INTACT. GENERALIZED EDEMA NOTED TO LLE, CRYOCUFF IN PLACE TO L HIP/THIGH. PT REPORTS PAIN IS A 2/10 AT THIS TIME. CPOX TO L HAND AT 96% ON RA. BREAKFAST TRAY ARRIVES, BOLT MAN SEBASTIÁN ARRIVES AND REFILLS ICE IN CRYOCUFF. PT SO ARRIVES TO VISIT. NO OTHER NEEDS AT THIS TIME, CALL LIGHT IN REACH.
[2024-05-29] MEDS ORDERED: Rivaroxaban 10 MG TAB PO SCH (08:00)
[2024-05-29] MEDS ORDERED: POLYETHYLENE GLYCOL 3350 1 PACKET PO SCH (09:00)
--- NOTE | 2024-05-29 10:30 | NUR ---
MD INFORMED TO CHANGE PT TO INPATIENT IF AGREEABLE PER CASE MGMT DISCUSSION YESTERDAY.
--- NOTE | 2024-05-29 11:40 | NUR ---
DEL VALLE CATHETER REMOVED WNL, TIP INTACT. PT TOLERATED WELL. CPOX IN PLACE AT CHAIRSIDE, 97%. CRYOCUFF IN PLACE ON L THIGH/HIP, PT UP IN RECLINER WITH COMPRESSION STOCKINGS BLE. SO AT CHAIRSIDE. PT REPORTS PAIN LEVEL IS 6/10, PRN PAIN MEDICATION PROVIDED. NO OTHER NEEDS AT THIS TIME, CALL LIGHT IN REACH.
--- NOTE | 2024-05-29 14:57 | NUR ---
SECOND ASSESSMENT COMPLETE. PT RESTING IN BED WATCHING TELEVISION. CRYCUFF IN PLACE, LEELEE HOSE ON, SCDs ON. VICTOR MANUEL WOUND VAC IN PLACE FLASHING GREEN. THIGH DRESSING D/I, NO NEW DRAINAGE. HIP DRESSING D/I, NO NEW DRAINAGE. PT REPORTS NO PAIN AT THIS TIME. PT SUSTAINS SPO2 ABOVE 96% ON RA, CPOX REMOVED PER PROTOCOL. NO NEEDS AT THIS TIME, CALL LIGHT IN REACH.
--- NOTE | 2024-05-29 17:52 | NUR ---
IN ROAD FREIGHT CONDUCTOR SEBASTIÁN REPORTS TEMPERATURE OF 100.5. TEMPERATURE RECHECKED AND IS NOW 99.5. PT EDUCATED ON IS USE, ENCOURAGED TO USE IS QH x10. RETURNS DEMONSTRATION. NO OTHER NEEDS AT THIS TIME, CALL LIGHT IN REACH.
--- NOTE | 2024-05-29 19:21 | NUR ---
RECEIVED REPORT FROM BHAVYA RN'S. PT RESTING IN BED, NO COMPLAINTS OR NEEDS IDENTIFIED. WHITE BOARD UPDATED. CALL LIGHT WITHIN REACH. URINAL EMPTIED.
--- NOTE | 2024-05-29 20:00 | NUR ---
PT RESTING COMFORTABLY IN BED, VSS. TEMP 99.8. WILL CONT TO MON. REPORTS MINIMAL PAIN TO LEFT HIP/THIGH, ACCEPTED OFFER OF PRN OXYCODONE. CMS INTACT. 2+ EDEMA TO LEFT HIP, CRYO CUFF IN PLACE. VICTOR MANUEL SURG DRSG W/ MOD AMT DRIED DRNG, VICTOR MANUEL WOUND VAC W/ GREEN FLASHING LIGHT. UPPER LEFT HIP DRSG W/ OLD DRIED DRNG. LEELEE HOSE AND SCD'S IN PLACE TO BLE. ROLLED TOWELS IN PLACE UNDER BILAT ANKLES FOR HEEL RELIEF. LSC DIM TO BASES, ENC IS USE AND DB&C. HRR. BTA, LBM 05/26, ADMINISTERED MOM PER EMAR. VOIDS VIA URINAL. TTWB TO LLE WHEN AMBULATING. RFA IV INFUSING LR. CALL LIGHT WITHIN REACH. NO FURTHER NEEDS.
--- NOTE | 2024-05-29 20:59 | NUR ---
iv pump alarming, new bag iv fluids infusing as directed. iv site wnl. pt denies additional needs or concerns. call light in reach.
--- NOTE | 2024-05-29 22:44 | NUR ---
PT SLEEPING SOUNDLY, LIGHTLY SNORING. CALL LIGHT WITHIN REACH.
[2024-05-30] VITALS (8 sets, daily range): BP systolic 129–155; BP diastolic 51–79
--- NOTE | 2024-05-30 00:11 | NUR ---
PT SLEEPING SOUNDLY. LIGHTLY SNORING. CALL LIGHT WITHIN REACH.
--- NOTE | 2024-05-30 03:00 | NUR ---
PT SLEEPING SOUNDLY. IVF INFUSING. CALL LIGHT WITHIN REACH.
--- NOTE | 2024-05-30 04:51 | NUR ---
PT SLEEPING SOUNDLY. APPEARS COMFORTABLE. CALL LIGHT WITHIN REACH.
--- NOTE | 2024-05-30 04:57 | NUR ---
PT SLEPT WELL. LEFT HIP VICTOR MANUEL WOUNDVAC, DRSG W/ NG. CMS INTACT. WORKING W/ PT. 1 ASSIST W/ FWW. DEL VALLE OUT-VOIDS WNL. IVF INFUSING. LOW GRADE TEMP ONGOING BUT IMPROVING.
[2024-05-30 05:30] LABS: BASOPHILS 0.6 % (0-2); EOSINOPHILS 2.4 % (0-6); HEMATOCRIT 30.8 % (35.0-50.0); LYMPHOCYTES 10.8 % (24-44); MCHC 35.7 g/dl (30-36); MCV 95.4 fl (81-99); MONOCYTES 9.8 % (0-12); NEUTROPHILS 76.4 % (39-80); PLATELET COUNT 208 K/uL (140-440); RBC 3.23 M/ul (4.3-5.7); RDW 13.1 (10.5-15.0)
[2024-05-30 05:42] LABS: BUN/CREATININE RATIO 18.98 (6.0-28.6); CALCIUM 8.3 mg/dL (8.5-10.1); CREATININE, SERUM 0.79 mg/dL (0.70-1.30)
--- NOTE | 2024-05-30 06:14 | NUR ---
PT AWAKE. DENIES PAIN. LEFT HIP/THIGH DRSGS UNCHANGED. VICTOR MANUEL WOUNDVAC TO LEFT HIP W/ GREEN FLASHING LIGHT. CMS INTACT. CRYO CUFF IN PLACE. DENIES ANY FURTHER NEEDS.
--- NOTE | 2024-05-30 07:00 | NUR ---
Assisted Pt from bed to bathroom to chair FWW 1PA. Adjusted cryo-cuff on Pt's hip and provded fresh ice water. No other needs expressed by Pt. Call light left in reach.
--- NOTE | 2024-05-30 07:18 | NUR ---
BEDSIDE REPORT RECEIVED FROM RANDALL PEREZ. PT AWAKE AND ALERT IN RECLINER. CALL LIGHT IN REACH, NO REQUESTS AT THIS TIME.
--- NOTE | 2024-05-30 07:44 | NUR ---
PT RESTS IN RECLINER, CRYOCUFF IN PLACE OVER LEFT HIP/THIGH. TEDS TO BLE. BLE ELEVATED. IS, URINAL AND CALL LIGHT IN REACH. PT REPORTS PAIN TOLERABLE AT THIS TIME. NO REPORTS OF DISCOMFORT. TO REQUESTS AT THIS TIME.
--- NOTE | 2024-05-30 12:35 | NUR ---
PT EATS 100% OF LUNCH, TOLERATES THIS WELL, DENIES PAIN AT THIS TIME. CRYOCUFF REMAINS IN PLACE. SPOUSE IN ROOM VISITING. PT SITS UP IN RECLINER, IS AND CALL LIGHT IN REACH. FRESH ICE WATER PROVIDED, NO FURTHER REQUESTS AT THIS TIME.
--- NOTE | 2024-05-30 15:25 | NUR ---
PT RESTS IN RECLINER, PERFORMS PHYSICAL THERAPY ROUTINE IN CHAIR, CRYOCUFF IN PLACE. NO REQUESTS AT THIS TIME.
--- NOTE | 2024-05-30 17:37 | NUR ---
PT EATS 90% OF DINNER, TOLERATES THIS WELL. USE URINAL TO VOID CLEAR YELLOW URINE. PT BACK TO BED WITH FWW AND 1 PA, USES TTWB, DEMONSTRATES THIS WELL. TOLERATES ACTIVITY WELL. SCDS FROM ANKLES TO KNEES IN PLACE. HEELS FLOATED IN BED. CRYOCUFF IN PLACE OVER LEFT HIP/THIGH INCISIONS, FRESH ICE IN CRYOCUFF. CALL LIGHT IN REACH. NO FURTHER REQUESTS AT THIS TIME.
--- NOTE | 2024-05-30 20:15 | NUR ---
AWAKE, ALERT AND ORIENTED, WATCHING TV. ON ROOM AIR, LUNGS CLEAR DIM AT BASES, NO C/O COUGH. ABD LARGE SOFT, NON TENDER, LBM TODAY. EDEMA L KNEE UP TO HIP ARE, DRESSING WITH OLD DRAINAGE, CYOCUFF IN PLACE, TEDHOSE AND SCDS IN PLACE, ROLLED UP TOWELS UNDER ANKLES IN PLACE. TOLERATING LIQUIDS WELL, IVF INFUSING LA W/O PROBLEMS, DENIES C/O PAIN. USED URINAL, SLIGHTLY DARK COLORED URINE.
--- NOTE | 2024-05-30 22:53 | NUR ---
RESTING, EYES CLOSED, NO S/SX DISTRESS, CRYOCUFF TO L HIP, DRESIN NO CHANGES, SCDS/TEDHOSE IN PLACE BILAT. IVF INFUSING
[2024-05-31] VITALS (8 sets, daily range): BP systolic 90–150; BP diastolic 57–71
--- NOTE | 2024-05-31 00:41 | NUR ---
Resting, eyes closed, no s/sx distress. cryocuff to L hip, scds, tedhose in place
--- NOTE | 2024-05-31 03:01 | NUR ---
RESTING, EYES CLOSED, IVF INFUSING, CRYOCUFF IN PLACE, DRESSING L HIP IN PLACE. KATIA[facility]
--- NOTE | 2024-05-31 05:22 | NUR ---
awakens easily, on room air, working with IS, no c/o sob, turns and repositions self in bed. edema to L hip to knee no changes, dressing in place no changes, scds, tedhose in place. tolerating liquids well. cryocuff in place, fresh fluids given
[2024-05-31 05:33] LABS: BASOPHILS 0.8 % (0-2); HEMATOCRIT 28.7 % (35.0-50.0); HEMOGLOBIN 10.5 g/dL (12.0-18.0); MCH 34.4 (27-36); MCHC 36.5 g/dl (30-36); MCV 94.3 fl (81-99); NEUTROPHILS 74.2 % (39-80); PLATELET COUNT 219 K/uL (140-440); RBC 3.04 M/ul (4.3-5.7); RDW 12.9 (10.5-15.0)
[2024-05-31 05:48] LABS: ANION GAP 8.7 (7-21); BUN/CREATININE RATIO 24.69 (6.0-28.6); CALCIUM 8.2 mg/dL (8.5-10.1); CREATININE, SERUM 0.81 mg/dL (0.70-1.30); POTASSIUM 3.7 mmol/L (3.5-5.1)
--- NOTE | 2024-05-31 06:20 | NUR ---
CALL LIGHT ANSWERED. PATIENT ALREADY BACK IN BED FROM BATHROOM. PATIENT HAD A BM. CRYO AND SCD BACK ON. NO FURTHER NEEDS VERBALIZED.
--- NOTE | 2024-05-31 07:26 | NUR ---
BEDSIDE REPORT RECEIVED FROM RANDALL LÓPEZ. PT IS AWAKE IN BED, WATCHES TV, NO REQUESTS AT THIS TIME.
--- NOTE | 2024-05-31 08:37 | NUR ---
Patient is up and eating in his bed, board has been updated and call light has been placed within reach. No further request from patient at this time
--- NOTE | 2024-05-31 09:50 | NUR ---
In to see Mr. Flor and obtain signature for his second IMM letter. Letter explained, and signed without hesistation. Mr. Flor is oriented to person, place, and time. He answers questions appropriately, and his is in the room with him during this time. Letter is signed without hesitation. When asked about his care, Mr Flor reports that his care has been very good and that "everyone is so nice." Mr. Flor and his report no concerns at this time and deny questions.
--- NOTE | 2024-05-31 12:02 | NUR ---
PT AMBULATES IN HALLWAY WITH PHYSICAL THERAPY.
--- NOTE | 2024-05-31 12:08 | NUR ---
ENCOUNTERED PT WHILE IN [place] WITH PHYSICAL THERAPY. FACILITATED INTERACTION WITH THERAPY ANIMAL, PROVIDED PRAYER.
--- NOTE | 2024-05-31 15:19 | NUR ---
PT BACK TO ROOM AFTER PHYSICAL THERAPY, SITS UP IN RECLINER. CALL LIGHT IN REACH, CRYOCUFF OVER LEFT HIP. NO REQUESTS AT THIS TIME.
--- NOTE | 2024-05-31 16:18 | NUR ---
Patient appears in a ggood moood, water has been refilled and chocolae ensure has been given
--- NOTE | 2024-05-31 17:50 | NUR ---
PT RESTS IN RECLINER WITH BLE ELEVATED, CRYOCUFF IN PLACE. PT REPORTS PAIN TOLERABLE AT THIS TIME. DENIES NEED FOR MEDICATION INTERVENTION. EATS 100% OF DINNER, TOLERATES THIS WELL. ENSURE PROTIEN SHAKE PROVIDED. CALL LIGHT IN REACH. NO REQUESTS AT THIS TIME.
--- NOTE | 2024-05-31 21:47 | NUR ---
Pt awakens easily, on room air, clear lungs, had a bm today, declined MOM. abd soft, nonternde. ARMAND. L hip mague hip to kne and inner thigh area. L hip VICTOR MANUEL dressing with old drainage. SCDS and tedhose in place, elevated w rolled up towels under ankle area. COoperative with vitals and assessment. Medciated with Oxycodone 5mg per mild L hip pain. voiding QS yellow urine, tolerating liquids well. IVF infusing w/o problems
--- NOTE | 2024-05-31 23:45 | NUR ---
CHECKED ON pt. RESTING IN BED WITH EYES CLOSED, BREATHING UNLABORED. NO DISTRESS NOTED.
[2024-06-01] VITALS (7 sets, daily range): BP systolic 108–150; BP diastolic 47–80
--- NOTE | 2024-06-01 00:45 | NUR ---
THIS RN TO ASSUME CARE. REPORT RECEIVED FROM FIRE SPRINKLER DESIGNER. IV PUMP ALARMING. NEW BAG IVF INFUSING PER ORDER. PT AWAKE IN BED. DENIES PAIN OR NAUSEA. VICTOR MANUEL DRESSING INTACT WITH OLD DRAINAGE. LIGHT FLASHING GREEN. LLE CMS INTACT. CRYO TO LEFT HIP. URINAL EMPTIED. PT DENIES QUESTIONS OR CONCERNS. CALL LIGHT IN REACH.
--- NOTE | 2024-06-01 03:13 | NUR ---
PT RESTING IN BED WITH EYES CLOSED. RESPIRATIONS EVEN. CALL LIGHT IN REACH.
--- NOTE | 2024-06-01 05:30 | NUR ---
LAB IN ROOM FOR MORNING DRAW. VS AND I&O OBTAINED. PT DENIES PAIN. ASSESSMENT UNCHANGED. FRESH ICE TO CRYO. PT DENIES NEEDS. CALL LIGHT IN REACH.
[2024-06-01 05:43] LABS: BASOPHILS 0.9 % (0-2); EOSINOPHILS 8.4 % (0-6); HEMATOCRIT 29.5 % (35.0-50.0); HEMOGLOBIN 10.4 g/dL (12.0-18.0); LYMPHOCYTES 13.8 % (24-44); MCH 33.7 (27-36); MCHC 35.2 g/dl (30-36); MCV 95.8 fl (81-99); NEUTROPHILS 67.9 % (39-80); PLATELET COUNT 200 K/uL (140-440); RBC 3.08 M/ul (4.3-5.7); RDW 12.8 (10.5-15.0)
--- NOTE | 2024-06-01 05:46 | NUR ---
PATIENTS VITALS TAKEN AND RECORDED. PATIENTS URINAL EMPTIED. FRESH ICE WATER PROVIDED. INTAKE AND OUTPUT RECORDED. PATIENT RATES PAIN AT A 5/10 IN HIS RLQ, PRN MEDICATION GIVEN PER ORDER. PATIENT DENIES ANY FURTHER NEEDS. CALL LIGHT IN REACH.
[2024-06-01 05:55] LABS: ANION GAP 10.8 (7-21); BUN/CREATININE RATIO 23.52 (6.0-28.6); CALCIUM 8.3 mg/dL (8.5-10.1); CREATININE, SERUM 0.85 mg/dL (0.70-1.30); POTASSIUM 3.8 mmol/L (3.5-5.1)
--- NOTE | 2024-06-01 07:15 | NUR ---
VERBAL REPORT RECEIVED FROM RANDALL ELLSWORTH. PT RESTS IN BED, AWAKE, WATCHES TV. NO REQUESTS AT THIS TIME.
--- NOTE | 2024-06-01 08:51 | NUR ---
PT SITS UP IN RECLINER, TOLERATES BREAKFAST WELL. DRINKS ENSURE PROTEIN SHAKE. CRYOCUFF IN PLACE OVER LEFT THIGH. BLE ELEVATED. PT WATCHES TV, CALL LIGHT IN REACH.
--- NOTE | 2024-06-01 10:30 | NUR ---
Spoke with Jordan and his Priscila. They plan on dc to home tomorrow. They deny any needs. will transport pt.
--- NOTE | 2024-06-01 12:02 | NUR ---
PT RESTS IN RECLINER, CALL LIGHT IN REACH. PT USES URINAL PRODUCES 250 MLS OF CLEAR YELLOW URINE. BLE ELEVATED. PT REPORTS HE WORKED WITH PHYSICAL THERAPY THIS AM STATES, "IT WHEN WELL." PT WATCHES TV, CRYOCUFF IN PLACE OVER LEFT THIGH. NO REQUESTS AT THIS TIME.
--- NOTE | 2024-06-01 13:18 | NUR ---
PT RESTS IN RECLINER, SPOUSE IN ROOM VISITING. PT WATCHES TV, DENIES PAIN OR NAUSEA AT THIS TIME. EDEMA REMAINS PRESENT FROM KNEE TO HIP. EDEMA AROUND KNEE HAS IMPROVED. 3+ PITTING EDEMA REMAINS IN POSTERIOR THIGH. NO NEW DRAINAGE ON L THIGH DRESSING, VICTOR MANUEL REMAINS TO SUCTION. HIP DRESSING REMAINS C/D/I. NO AZRA WOUND REDNESS NOTED. CRYCUFF IN PLACE OVER L THIGH. TEDS ON BLE, BLE ELEVATED. IS AT BEDSIDE. ENSURE PROTIEN SHAKE PROVIDED. CALL LIGHT IN REACH NOT REQUESTS AT THIS TIME.
--- NOTE | 2024-06-01 14:00 | NUR ---
Received a call from Yfn at OP therapy. He is requesting to know if pt will keep his appt on Friday to start OP therapy. I texted Dr. Roy and he confirmed, but pt will need different restrictions. I asked if he could write the new orders for OP in the am and I will fax those to Yfn. I called Yfn and updated.
--- NOTE | 2024-06-01 14:34 | NUR ---
PATIENT JUST GOT BACK FROM PT. ICE MACHINE HAS BEEN FILLED AND BLANKET FROM WARMER HAS BEEN GIVEN
--- NOTE | 2024-06-01 19:31 | NUR ---
REPORT RECEIVED FROM DAY SHIFT RN. PT LYING IN BED ALERT AND ORIENTED. DENIES NEEDS. WHITE BOARD UPDATED. CALL LIGHT IN REACH.
--- NOTE | 2024-06-01 21:10 | NUR ---
EVENING ASSESSMENT COMPLETE. SCHEDULED MEDS ADMIN PER EMAR. PT DENIES PAIN OR NAUSEA. LEFT HIP VICTOR MANUEL DRESSING WITH OLD DRAINAGE INTACT. LIGHT FLASHING GREEN. FRESH ICE TO CRYO. SCD'S/TEDS IN PLACE. EDEMA NOTED IN LEFT UPPER THIGH. PT DENIES QUESTIONS OR CONCERNS. CALL LIGHT IN REACH.
--- NOTE | 2024-06-02 00:14 | NUR ---
PT RESTING IN BED WITH EYES CLOSED. RESPIRATIONS EVEN. CALL LIGHT IN REACH.
--- NOTE | 2024-06-02 02:11 | NUR ---
PT RESTING WITH EYES CLOSED. AWAKENS BRIEFLY UPON ENTERING ROOM. URINAL EMPTIED. NO NEEDS AT THIS TIME. CALL LIGHT IN REACH.
--- NOTE | 2024-06-02 04:08 | NUR ---
PT RESTING IN BED WITH EYES CLOSED. RESPIRATIONS EVEN. CALL LIGHT IN REACH.
[2024-06-02 05:27] VITALS: BP 118/93
[2024-06-02 05:29] VITALS: BP 129/69
--- NOTE | 2024-06-02 05:43 | NUR ---
PT AWAKE IN BED. VS AND I&O OBTAINED. FRESH ICE TO CRYO. ASSESSMENT UNCHANGED. PT DENIES PAIN OR NAUSEA. NO NEEDS AT THIS TIME. CALL LIGHT IN REACH.
[2024-06-02 05:44] VITALS: BP 129/69
--- NOTE | 2024-06-02 07:12 | NUR ---
PT RESTING IN BED WATCHING TV AT THIS TIME. RECEIVED REPORT FROM NIGHT RN. PT DENIES ANY NEEDS. ALL PT CARE NEEDS MET, WILL CONTINUE TO MONITOR
--- NOTE | 2024-06-02 07:33 | NUR ---
PT RESTING IN BED, PLAYING ON TABLET. PT STATES SHE IS FEELING VERY ANXIOUS, REQUESTING SOME ATIVAN. REPORT RECEIVED FROM NOC RN, REQUESTED TO GET DOSE OF ATIVAN FOR PATIENT IF DUE - SHE WAS PRESENTING TO BEDSIDE WHILE I FINISHED REPORT. PT REALLY EXPRESSING SHE WOULD LIKE TO DISCHARGE TODAY, INFORMED I WOULD FOLLOW-UP WITH MD/CASE MGMT AND WE WOULD MAKE A PLAN TODAY. PT UNDERSTANDS, ADVISED NOT TO GET UP ON HER OWN THEY REPORT SHE IS UNSTEADY. PT VERBALIZED UNDERSTANDING. ALL PT CARE NEEDS MET AT THIS TIME, CALL LIGHT WITHIN REACH.
[2024-06-02 09:13] VITALS: BP 157/70
[2024-06-02 09:19] VITALS: BP 109/55
[2024-06-02 09:43] VITALS: BP 109/55
[2024-06-02] MEDS ORDERED: XARELTO10 MG PO (09:59)
--- NOTE | 2024-06-02 10:00 | NUR ---
Spoke with pt and . They deny needs. They have seen Dr. Roy and he has discharged them. I reviewed orders for OP therapy and could not find. Progress notes states pt will need HH. I texted Dr. Roy and he would like pt to cont. with HH through [facility] and not start OP therapy as we had discussed yesterday. I called Yfn at [facility] and updated. He will cancel the appt on Friday. I called Pedro and reached their message phone. They will have someone call me from the [facility] Office. I will send resumption orders if needed.
[2024-06-02] MEDS ORDERED: IBUPROFEN 600 MG TAB PO PRN (10:30)
--- NOTE | 2024-06-02 18:41 | DS ---
[facility] [address], [place] [address] Signed ADMISSION DATE: 05/26/2024 DISCHARGE DATE: 06/02/2024 ADMISSION DIAGNOSIS: Periprosthetic proximal femur fracture, left. DISCHARGE DIAGNOSIS: Periprosthetic proximal femur fracture, left. PROCEDURE PERFORMED DURING THIS HOSPITALIZATION: Revision left total hip femur, open reduction and internal fixation of left proximal femur fracture. BRIEF HISTORY: Jordan is a 73-year-old gentleman, who underwent total hip arthroplasty about two weeks prior to his injury. He was walking into his house when he caught his foot twisting and felt a snap in his hip. He was unable to bear weight and was transported to the ER where radiographs showed a periprosthetic type 1 fracture of the proximal femur. He was admitted to my service for operative intervention. Risks, benefits, and alternatives of this were discussed with him. He understood and underwent the procedure with minimal difficulty. He was taken to the recovery room, subsequently to orthopedic floor where he underwent physical therapy, toe-touch weightbearing on his left lower extremity. He had fair amount of fatigue and required multiple days of physical therapy and he be safe to go home. He will be discharged to home on the oxycodone, gabapentin, and Xarelto, which he was on previously. He will be seen by in-home physical therapy and follow up with me in seven days for dressing change. Christal Roy MD BA/RICHARD /[id number] Electronically Signed By: CHRISTAL ROY MD 06/02/24 1841 PATIENT NAME: JORDAN BRO DISCHARGE SUMMARY DATE OF : 54 REPORT #: [id number] PHYSICIAN: CHRISTAL ROY MD PCP: REY SALAZAR REPORT IS CONFIDENTIAL AND NOT TO BE RELEASED WITHOUT AUTHORIZATION [address] [address] Signed Copies: ~ Electronically Signed By: CHRISTAL ROY MD 06/02/24 1841 PATIENT NAME: JORDAN BRO DISCHARGE SUMMARY DATE OF : 54 REPORT #: [id number] PHYSICIAN: CHRISTAL ROY MD PCP: REY SALAZAR REPORT IS CONFIDENTIAL AND NOT TO BE RELEASED WITHOUT AUTHORIZATION
== END 2024-06-02 11:11 | disposition home or self-care (01) | DRG 467 ==
LOC: ED 17:47 → MS 20:38
PROVIDERS: Internal Medicine; ADMIT Specialist; ATTEND Specialist
PROC: 0SPS0JZ Removal of Synthetic Substitute from Left Hip Joint, Femoral Surface, Open Approach (ICD-10-PCS; 2024-05-28)
PROC: 0QS704Z Reposition Left Upper Femur with Internal Fixation Device, Open Approach (ICD-10-PCS; 2024-05-28)
PROC: 0SRS0JZ Replacement of Left Hip Joint, Femoral Surface with Synthetic Substitute, Open Approach (ICD-10-PCS; principal; 2024-05-28 07:00)
DX: S72.002B Fracture of unspecified part of neck of left femur, initial encounter for open fracture type I or II (principal); G45.9 Transient cerebral ischemic attack, unspecified; M97.02XA Periprosthetic fracture around internal prosthetic left hip joint, initial encounter; W18.30XA Fall on same level, unspecified, initial encounter; I25.10 Atherosclerotic heart disease of native coronary artery without angina pectoris; I10 Essential (primary) hypertension; Z98.890 Other specified postprocedural states; Z79.899 Other long term (current) drug therapy; Z79.82 Long term (current) use of aspirin; Z79.01 Long term (current) use of anticoagulants
CPT/HCPCS: 01230; 36415; 70450; 72170; 73501; 73502; 73700; 80048; 80053; 85025; 86850; 86900; 86901; 86922; 96365; 96375; 96376; 97110; 97116; 97161; 97530; 99285-25; A9270; C1776; G0378; J0131; J0690; J1171; J1885; J2003; J2250; J2371; J2704; J3010; J7121

== ENCOUNTER 2024-07-17 08:02 | Emergency (ER) | payer MEDICARE, OTHER ==
[~2024-07-17] VITALS: Ht 177.8 cm; Wt 109.3 kg
[~2024-07-17 08:02] MED LIST changes: +NEURONTIN300 MG PO
[2024-07-17] MEDS ORDERED: MELOXICAM15 MG PO (08:22)
[2024-07-17] MEDS ORDERED: AZITHROMYCIN/DEXTROSE 500 MG/250 ML PIGGYBACK IV ONE (08:45)
[2024-07-17] MEDS ORDERED: SODIUM CHLORIDE 0.9% 1,000 ML IV PRN (08:45)
[2024-07-17] MEDS ORDERED: ALBUTEROL/IPRATROPIUM 3 ML NEB INH ONE (08:45)
[2024-07-17] MEDS ORDERED: CEFTRIAXONE/SODIUM CHLORIDE 2 GM/100 ML PIGGYBACK IV ONE (08:45)
[2024-07-17] MEDS ORDERED: methylPREDNISolone SOD SUCC 125 MG/2 ML VIAL IV ONE (08:45)
[2024-07-17 08:51] LABS: BASOPHILS 0.2 % (0-2); EOSINOPHILS 0.1 % (0-6); HEMATOCRIT 39.6 % (35.0-50.0); HEMOGLOBIN 13.8 g/dL (12.0-18.0); MCH 32.7 (27-36); MCHC 34.9 g/dl (30-36); MCV 93.6 fl (81-99); MONOCYTES 7.2 % (0-12); NEUTROPHILS 88.5 % (39-80); PLATELET COUNT 239 K/uL (140-440); RBC 4.22 M/ul (4.3-5.7); RDW 14.5 (10.5-15.0)
[2024-07-17 09:05] LABS: PARTIAL THROMBOPLASTIN TIME 31.2 Sec (22.9-41.3)
[2024-07-17 09:06] LABS: INR 1.22 (0.80-1.30); PROTIME 14.7 Sec (11.2-14.2)
[2024-07-17 09:13] LABS: LACTIC ACID, BLOOD 1.2 mmol/L (0.4-2.0)
[2024-07-17 09:18] LABS: ALBUMIN 3.3 g/dL (3.4-5.0); ALBUMIN/GLOBULIN RATIO 0.87 (1.1-2.4); ANION GAP 15.7 (7-21); BILIRUBIN, TOTAL 1.5 ng/dL (0.2-1.0); BUN/CREATININE RATIO 20.19 (6.0-28.6); CALCIUM 8.8 mg/dL (8.5-10.1); CREATININE, SERUM 1.04 mg/dL (0.70-1.30); POTASSIUM 3.7 mmol/L (3.5-5.1); PROTEIN, TOTAL 7.1 g/dL (6.4-8.2)
[2024-07-17 10:00] LABS: INFLUENZA B NAA NEGATIVE (NEGATIVE); RESPIRATORY SYNCYTIAL VIR NAA NEGATIVE (NEGATIVE)
[2024-07-17 10:39] LABS: BILIRUBIN, URINE NEGATIVE (negative); BLOOD/HGB, URINE NEGATIVE (Negative); KETONE, URINE NEGATIVE (Negative); LEUK ESTERASE, URINE NEGATIVE (negative); NITRITE, URINE NEGATIVE (negative)
[2024-07-17] MEDS ORDERED: HEPARIN SOD,PORK IN 0.45% NACL 500 ML IV SCH ×2 (11:15→11:45)
[2024-07-17] MEDS ORDERED: HEParin SOD (PORCINE) 5,000 UNIT/ML SYR IV PRN ×6 (11:15→11:45)
[2024-07-17] MEDS ORDERED: HEParin SOD (PORCINE) 5,000 UNIT/ML SYR IV ONE ×2 (11:15→11:45)
[2024-07-17 12:14] VITALS: BP 146/92
--- NOTE | 2024-07-18 20:59 | EKG ---
[facility] [address] [facility] [place] [address] Signed Normal sinus rhythm Possible Left atrial enlargement T wave abnormality, consider anterior ischemia Abnormal ECG When compared with ECG of 29-AUG-2023 20:40, T wave inversion more evident in Inferior leads T wave inversion now evident in Anterior leads Confirmed by Tejas Ponce MD ([id number]) on 07/18/2024 8:59:12 PM Electronically Signed By: TEJAS PONCE DO 07/18/242058 PATIENT NAME: MIGUEL ANGEL BRO Electrocardiogram DATE OF : 54 PHYSICIAN: TEJAS PONCE DO REPORT #: [id number] REPORT IS CONFIDENTIAL AND NOT TO BE RELEASED WITHOUT AUTHORIZATION
== END 2024-07-17 12:12 | disposition short-term general hospital (02) ==
LOC: ED 08:02
PROVIDERS: Emergency Medicine
DX: I26.99 Other pulmonary embolism without acute cor pulmonale (principal); I10 Essential (primary) hypertension; E78.00 Pure hypercholesterolemia, unspecified; K21.9 Gastro-esophageal reflux disease without esophagitis; Z79.1 Long term (current) use of non-steroidal anti-inflammatories (NSAID); Z79.899 Other long term (current) drug therapy
CPT/HCPCS: 36415; 71045; 71260; 80053; 81003; 83605; 83880; 84484; 85025; 85610; 85730; 87502; 93005; 93010; 93970; 94640; 99285-25; J0456; J0696; J1644; J2919; J7030; Q9967; U0002